=== PATIENT | female | born 1965 | race Caucasian/White ===

== ENCOUNTER 2019-03-08 19:04 | Emergency (ER) | payer BC ==
[~2019-03-08] VITALS: Ht 167.6 cm; Wt 47.6 kg
[2019-03-08] MEDS ORDERED: WELLBUTRIN (21:28)
[2019-03-08] MEDS ORDERED: LAMICTAL (21:28)
[2019-03-08] MEDS ORDERED: PANT20 PO (21:29)
[2019-03-13] MEDS ORDERED: BUPR75 (10:55)
[2019-03-13] MEDS ORDERED: Catapres-Tts 21 EACH (10:56)
[2019-03-13] MEDS ORDERED: LAMO25 (10:56)
== END 2019-03-08 23:47 | disposition home or self-care (01) ==
LOC: ER 19:04
DX: S92.322A Displaced fracture of second metatarsal bone, left foot, initial encounter for closed fracture (principal); F31.9 Bipolar disorder, unspecified; Z79.899 Other long term (current) drug therapy; W19.XXXA Unspecified fall, initial encounter; Y93.01 Activity, walking, marching and hiking
CPT/HCPCS: 73630; 73700; 99284-25

== ENCOUNTER 2019-03-14 08:21 | Day surgery (SDC) | payer BC ==
[~2019-03-14] VITALS: Ht 168.6 cm; Wt 76.4 kg
[~2019-03-14 08:21] MED LIST: BUPR75; Catapres-Tts 21 EACH; LAMICTAL; LAMO25; PANT20 PO; WELLBUTRIN
== END 2019-03-14 12:45 | disposition home or self-care (01) ==
LOC: ORSCSDS 08:21
PROVIDERS: Podiatrist Foot & Ankle Surgery
PROC: 0SGL04Z Fusion of Left Tarsometatarsal Joint with Internal Fixation Device, Open Approach (ICD-10-PCS; principal; 2019-03-14 09:30)
PROC: 0QSP04Z Reposition Left Metatarsal with Internal Fixation Device, Open Approach (ICD-10-PCS; principal; 2019-03-14 09:30)
DX: S93.325A Dislocation of tarsometatarsal joint of left foot, initial encounter (principal); S92.322A Displaced fracture of second metatarsal bone, left foot, initial encounter for closed fracture; Z87.891 Personal history of nicotine dependence; Z79.899 Other long term (current) drug therapy
CPT/HCPCS: C1713; C1769; J0690; J1100; J2250; J2405; J2704; J3010; J7120